=== PATIENT | male | born 1985 | race Caucasian/White ===

== ENCOUNTER 2020-12-17 01:30 | Emergency (ER) | payer OTHER ==
[2020-12-17 03:27] LABS: BASOPHIL 0.2 % (0-2); HCT 39.1 % (42.0-52.0); HGB 13.4 g/dl (13.2-18.0); LYMPHOCYTE 17.1 % (15-48); MCH 30.5 pg (25.0-31.0); MCHC 34.3 g/dL (32.0-36.0); MCV 88.9 fL (78.0-100.0); MPV 9.9 fL (6.0-9.5); NEUTROPHIL 75.4 % (41-80); NRBC 0; PLT 196 K/uL (150-400); RDW 13.4 % (11.5-14.0); WBC 14.5 K/uL (4.0-10.5)
[2020-12-17 04:00] LABS: ALBUMIN 3.5 g/dL (3.4-5.0); BILIRUBIN - TOTAL 0.3 mg/dL (0.2-1.0); BUN/CREAT RATIO (CALC) 9.4 RATIO; CREATININE 0.85 mg/dL (0.67-1.17); GLOBULIN (CALCULATION) 4.4 g/dL; POTASSIUM 3.6 mmol/L (3.5-5.1); TOTAL PROTEIN 7.9 g/dL (6.4-8.2)
[2020-12-17 05:34] LABS: C-REACTIVE PROTEIN 6.7 mg/dL (<=0.90)
[2020-12-17] MEDS ORDERED: VIBRAMYCIN100 MG PO (06:06)
[2020-12-17] MEDS ORDERED: PREDNISONE20 MG PO (06:06)
[2020-12-17] MEDS ORDERED: CEPHALEXIN500 M1 PO (06:53)
== END 2020-12-17 06:27 | disposition home or self-care (01) ==
LOC: FER 01:30
PROVIDERS: Emergency Medicine; Internal Medicine
DX: J44.1 Chronic obstructive pulmonary disease with (acute) exacerbation (principal); I11.0 Hypertensive heart disease with heart failure; E66.9 Obesity, unspecified; I50.813 Acute on chronic right heart failure; E11.9 Type 2 diabetes mellitus without complications; J44.9 Chronic obstructive pulmonary disease, unspecified; F17.210 Nicotine dependence, cigarettes, uncomplicated
CPT/HCPCS: 36415; 71045; 80053; 82728; 83615; 83880; 85025; 86140; 93005; J1940; J2930